=== PATIENT | male | born 1975 | race Caucasian/White ===

== ENCOUNTER 2022-03-23 07:54 | Emergency (ER) | payer BC, OTHER ==
[~2022-03-23] VITALS: Ht 172.7 cm; Wt 63.5 kg
--- NOTE | 2022-03-23 08:03 | ED General ---
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 Last night he was fine without any issues. Pt is able to ambulate without any issues. Denies fall, injuries, fever, chest pain, palpitations, neuro deficits, bowel/ bladder difficulties, abdominal pain, nausea and vomiting, diarrhea, headache, dizzine ss. No known sick contacts. Allergies and Home Medications Allergies Coded Allergies: No Known Drug Allergies (Unverified , 03/23/22) Patient Home Medication List Home Medication List Reviewed: Yes Review of Systems Review of Systems Constitutional: malaise EENTM: no symptoms reported Respiratory: short of breath Gastrointestinal: no symptoms reported Genitourinary: no symptoms reported Musculoskeletal: back pain Skin: no symptoms reported Psychiatric/Neurological: No Symptoms Reported Hematologic/Lymphatic: No Symptoms Reported Immunological/Allergic: no symptoms reported Physical Exam Vital Signs Vital Signs - First Documented 03/23/22 08:00 Temp 36.0 Pulse 87 Resp 20 B/P (MAP) 111/72 (85) Pulse Ox 98 O2 Delivery Room Air Capillary Refill : Height, Weight, BMI Height: '" Weight: lbs. oz. kg; BMI Method: General Appearance: Mild Distress HEENT: PERRL/EOMI, Normal ENT Inspection Neck: Full Range of Motion, Normal Inspection, Non Tender, Supple Respiratory: Chest Non Tender, Lungs Clear, Normal Breath Sounds, No Accessory Muscle Use Cardiovascular: Regular Rate, Rhythm, Normal Peripheral Pulses, Other (right upper extremity non-pitting edema, seen mainly in the hand.) Gastrointestinal: Normal Bowel Sounds, No Pulsatile Mass, Non Tender, Soft Back: Normal Inspection, Decreased Range of Motion, Muscle Spasm, Vertebral Tenderness (in the L1-L3 area, bilateral straight leg test positive, intact sensation) Extremity: Normal Capillary Refill, Normal Range of Motion, Non Tender, Other (edema of right upper extremity) Neurologic/Psychiatric: Alert, Oriented x3, No Motor/Sensory Deficits, Normal Mood/Affect, digital account coordinator II-XII Norm as Tested, Other (pt is able to ambulate) Skin: Normal Color, Warm/Dry Focused Exam Lactate Level 03/23/22 08:09: Lactic Acid Level 3.01*H 03/23/22 11:40: Lactic Acid Level Laboratory Tests Test 03/23/22 08:09 03/23/22 11:40 Lactic Acid Level 3.01 MMOL/L (0.50-2.00) *H Progress/Results/Core Measures Suspected Sepsis SIRS Temperature: Pulse: Respiratory Rate: Laboratory Tests 03/23/22 08:09: White Blood Count 10.2 Blood Pressure / Mean: 03/23/22 08:09: Lactic Acid Level 3.01*H 03/23/22 11:40: Laboratory Tests 03/23/22 08:09: Creatinine 0.92, INR Comment 3.3H, Platelet Count 212, Total Bilirubin 0.6 Results/Orders Lab Results Laboratory Tests Test 03/23/22 08:09 03/23/22 08:15 03/23/22 10:15 03/23/22 10:40 Range/Units White Blood Count 10.2 4.3-11.0 10^3/uL Red Blood Count 4.92 4.30-5.52 10^6/uL Hemoglobin 15.6 13.3-17.7 g/dL Hematocrit 46 40-54 % Mean Corpuscular Volume 93 80-99 fL Mean Corpuscular Hemoglobin 32 25-34 pg Mean Corpuscular Hemoglobin Concent 34 32-36 g/dL Red Cell Distribution Width 12.4 10.0-14.5 % Platelet Count 212 130-400 10^3/uL Mean Platelet Volume 9.4 9.0-12.2 fL Immature Granulocyte % (Auto) 1 % Neutrophils (%) (Auto) 82 H 42-75 % Lymphocytes (%) (Auto) 11 L 12-44 % Monocytes (%) (Auto) 5 0-12 % Eosinophils (%) (Auto) 1 0-10 % Basophils (%) (Auto) 1 0-10 % Neutrophils # (Auto) 8.3 H 1.8-7.8 10^3/uL Lymphocytes # (Auto) 1.2 1.0-4.0 10^3/uL Monocytes # (Auto) 0.5 0.0-1.0 10^3/uL Eosinophils # (Auto) 0.1 0.0-0.3 10^3/uL Basophils # (Auto) 0.1 0.0-0.1 10^3/uL Immature Granulocyte # (Auto) 0.1 0.0-0.1 10^3/uL Prothrombin Time 33.8 H 12.2-14.7 SEC INR Comment 3.3 H 0.8-1.4 Activated Partial Thromboplast Time 50 H 24-35 SEC D-Dimer 0.22 0.00-0.49 UG/ML Sodium Level 140 135-145 MMOL/L Potassium Level 4.3 3.6-5.0 MMOL/L Chloride Level 106 98-107 MMOL/L Carbon Dioxide Level 18 L 21-32 MMOL/L Anion Gap 16 H 5-14 MMOL/L Blood Urea Nitrogen 16 7-18 MG/DL Creatinine 0.92 0.60-1.30 MG/DL Estimat Glomerular Filtration Rate 102 BUN/Creatinine Ratio 17 Glucose Level 59 *L 70-105 MG/DL Lactic Acid Level 3.01 *H 0.50-2.00 MMOL/L Calcium Level 8.7 8.5-10.1 MG/DL Corrected Calcium 8.7 8.5-10.1 MG/DL Magnesium Level 1.9 1.6-2.4 MG/DL Total Bilirubin 0.6 0.1-1.0 MG/DL Aspartate Amino Transf (AST/SGOT) 26 5-34 U/L Alanine Aminotransferase (ALT/SGPT) 17 0-55 U/L Alkaline Phosphatase 73 40-136 U/L Troponin I < 0.30 <0.30 NG/ML Total Protein 6.8 6.4-8.2 GM/DL Albumin 4.0 3.2-4.5 GM/DL Lipase 19 8-78 U/L Influenza Type A (RT-PCR) Not Detected Not Detecte Influenza Type B (RT-PCR) Not Detected Not Detecte SARS-CoV-2 RNA (RT-PCR) Not Detected Not Detecte Glucometer 131 H 70-110 MG/DL Urine Color YELLOW Urine Clarity CLEAR Urine pH 5.5 5-9 Urine Specific [place] 1.015 L 1.016-1.022 Urine Protein NEGATIVE NEGATIVE Urine Glucose (UA) 1+ H NEGATIVE Urine Ketones 1+ H NEGATIVE Urine Nitrite NEGATIVE NEGATIVE Urine Bilirubin NEGATIVE NEGATIVE Urine Urobilinogen 0.2 < = 1.0 MG/DL Urine Leukocyte Esterase NEGATIVE NEGATIVE Urine RBC (Auto) NEGATIVE NEGATIVE Urine RBC NONE /HPF Urine WBC NONE /HPF Urine Squamous Epithelial Cells RARE /HPF Urine Crystals NONE /LPF Urine Bacteria NEGATIVE /HPF Urine Casts NONE /LPF Urine Mucus SMALL H /LPF Urine Culture Indicated NO Urine Opiates Screen NEGATIVE NEGATIVE Urine Oxycodone Screen NEGATIVE NEGATIVE Urine Methadone Screen NEGATIVE NEGATIVE Urine Propoxyphene Screen NEGATIVE NEGATIVE Urine Barbiturates Screen NEGATIVE NEGATIVE Ur Tricyclic Antidepressants Screen NEGATIVE NEGATIVE Urine Phencyclidine Screen NEGATIVE NEGATIVE Urine Amphetamines Screen NEGATIVE NEGATIVE Urine Methamphetamines Screen NEGATIVE NEGATIVE Urine Benzodiazepines Screen NEGATIVE NEGATIVE Urine Cocaine Screen NEGATIVE NEGATIVE Urine Cannabinoids Screen NEGATIVE NEGATIVE Test 03/23/22 11:40 Range/Units My Orders Orders - SIRENA NOLEN MD Cbc With Automated Diff (03/23/22 08:11) Comprehensive Metabolic Panel (03/23/22 08:11) Fibrin Degradation Products (03/23/22 08:11) Drug Screen Stat (Urine) (03/23/22 08:11) Lactic Acid Analyzer (03/23/22 08:11) Lipase (03/23/22 08:11) Magnesium (03/23/22 08:11) Procalcitonin (Pct) (03/23/22 08:11) Protime With Inr (03/23/22 08:11) Partial Thromboplastin Time (03/23/22 08:11) Ua Culture If Indicated (03/23/22 08:11) Troponin I Fs (03/23/22 08:11) Chest 1 View Ap/Pa Only (03/23/22 08:13) Us Venous Upper Ext Rt (03/23/22 08:13) Dexamethasone Injection (Decadron Inje (03/23/22 08:15) Covid 19 Inhouse Test (03/23/22 08:18) Influenza A And B By Pcr (03/23/22 08:18) Lumbar Spine 2 Or 3 View (03/23/22 08:14) Ed Iv/Invasive Line Start (03/23/22 08:52) Ns Iv 1000 Ml (Sodium Chloride 0.9%) (03/23/22 09:00) Blood Culture (03/23/22 08:52) Cefepime Injection (Maxipime Injection) (03/23/22 09:00) D50w (Emergency) Syringe (Dextrose 50% 5 (03/23/22 09:00) Ct Angio Chst/Abd/Pelv W Wo (03/23/22 09:18) Iohexol Injection (Omnipaque 350 Mg/Ml 1 (03/23/22 09:30) Received Contrast (Hold Metformin- Contr (03/23/22 09:30) Ns (Ivpb) (Sodium Chloride 0.9% Ivpb Bag (03/23/22 09:30) Medications Given in ED Current Medications Medications Dose Ordered Sig/Cheng Route Start Time Stop Time Status Last Admin Dose Admin Cefepime HCl 1000 mg/Sodium Chloride 50 ml @ 100 mls/hr ONCE ONCE IV 03/23/22 09:00 03/23/22 09:29 DC 03/23/22 10:07 100 MLS/HR Dexamethasone Sodium Phosphate 10 mg ONCE ONCE IV 03/23/22 08:15 03/23/22 08:43 DC 03/23/22 10:06 10 MG Dextrose 50 ml ONCE ONCE IV 03/23/22 09:00 03/23/22 09:01 DC 03/23/22 09:11 50 ML Iohexol 100 ml ONCE ONCE IV 03/23/22 09:30 03/23/22 09:31 DC 03/23/22 10:03 100 ML Sodium Chloride 100 ml ONCE ONCE IV 03/23/22 09:30 03/23/22 09:31 DC 03/23/22 10:03 100 ML Vital Signs/I&O 03/23/22 08:00 Temp 36.0 Pulse 87 Resp 20 B/P (MAP) 111/72 (85) Pulse Ox 98 O2 Delivery Room Air Capillary Refill : Progress Note : Progress Note 1. LOW BACK STRAIN: - CXR: unremarkable - CT ABD: unremarkabkle - XR LUMBAR SPINE: unremarkable - Dexa 10mg iv STAT - Advised Tylenol and Lidoderm patch 2. RIGHT UPPER EXTREMITY SWELLING: - ULTRASOUND UPPER EXTREMITY: no DVT - D-dimer: normal 3. ELEVATED PT & PTT: - PT: 33.8 - PTT: 50 - INR is 3.3 - Pt takes 5mg and 6mg of Warfarin alternating doses every other day - Called pt's PCP at and discussed with Dr. Pat Cook's nurse. Pt in ER a long time due to waitng to hear from PCP office at . PCP states she has her first visit with pt only tomorrow. Pt wants to go to only and doesnot want to be sent to [facility] for admission or observation. PCP stated that she will see him in clinic tomorrow and look over his labs from ER, as per nurse. 4. ELEVATED LACTIC ACID: DEHYDRATION WITH GENERALIZED MALAISE: - s. 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 HYPOGLYCEMIA: - Blood sugar is 59 - D-50 iv STAT - Blood sugar improved to 130's - Adequate nutrition and hydration advised Diagnostic Imaging Diagonstic Imaging: Xray, CT, Ultrasound Plain Films/CT/US/NM/MRI: forearm, hand, chest, other Comments [facility] [place], [place] NAME: MAX TAMEZ [facility] REC#: [id number] PT STATUS: REG ER : 1975 PHYSICIAN: SIRENA NOLEN MD ADMIT DATE: 03/23/22/ER FS Signed Date of Exam:03/23/22 CHEST 1 VIEW AP/PA ONLY EXAM: CHEST 1 VIEW AP/PA ONLY INDICATION: Shortness of breath. Back pain. COMPARISON: None. FINDINGS: Normal heart size and central pulmonary vascularity. No focal pulmonary opacity. No pleural effusion or pneumothorax. No acute osseous findings. Postoperative changes in the left clavicle. IMPRESSION: No acute cardiopulmonary findings. Dictated by: Dictated on workstation # [id number] Dict: 03/23/22 0851 Trans: 03/23/2259 [facility] [id number] Interpreted by: DENIA PEÑA MD Electronically signed by: DENIA PEÑA MD 03/23/2259 [facility] [place], [place] NAME: MAX TAMEZ [facility] REC#: [id number] PT STATUS: REG ER : 1975 PHYSICIAN: SIRENA NOLEN MD ADMIT DATE: 03/23/22/ER FS Draft Date of Exam:03/23/22 US VENOUS UPPER EXT RT INDICATION: Right arm swelling. Grayscale, color-flow and duplex Doppler evaluation of the right upper extremity deep venous system was performed. The right internal jugular vein is patent. Right subclavian and axillary veins are patent. The brachial vein is patent. Basilic and cephalic as well as radial and ulnar veins are patent. No thrombus is seen. No fluid collection is identified. IMPRESSION: No evidence of right upper extremity DVT. Dictated on workstation # [id number] Dict: 03/23/22927 Trans: 03/23/22929 [facility] [id number] Interpreted by: BULMARO RODRIGUES MD Electronically signed by: [facility] [place], [place] NAME: MAX TAMEZ [facility] REC#: [id number] PT STATUS: REG ER : 1975 PHYSICIAN: SIRENA NOLEN MD ADMIT DATE: 03/23/22/ER FS Draft Date of Exam:03/23/22 CT ANGIO CHST/ABD/PELV W WO EXAMINATION: CT angiography of the chest, abdomen, and pelvis. TECHNIQUE: Contrast enhanced thin section helical images were obtained through the chest, abdomen and pelvis with intravenous contrast timed for the optimal opacification of the arterial structures per CTA protocol. Post-processing, reconstructions and interpretation of angiographic images of the vessels was performed. 3D MIP reconstructions were performed and reviewed. All CT scans use one or more of the following dose optimizing techniques: automated exposure control, MA and/or KvP adjustment based on a patient size and exam type, or iterative reconstruction. HISTORY: Chest and abdominal pain radiating to the back. COMPARISON: None available. FINDINGS: There is no acute aortic syndrome. No aortic dissection, intramural hematoma, or penetrating atherosclerotic ulcer. No aortic aneurysm is seen. No central pulmonary embolism. There is no edema or pneumonia. No pleural effusion. No pneumothorax. No suspicious nodules. There is mild paraseptal emphysema. There is no axillary or supraclavicular lymphadenopathy. There is no mediastinal lymphadenopathy. Heart size is normal. There are mild coronary artery calcifications. No pericardial effusion. The liver is normal without focal lesion. There is no biliary ductal dilation. Gallbladder is normal. Pancreas is normal. Spleen is normal. Adrenal glands are normal. The kidneys are normal. There is no hydronephrosis. Urinary bladder is normal. Bowel is normal in caliber without obstruction or inflammation. No free fluid or air. No abdominal or pelvic lymphadenopathy. There are no suspicious osseus lesions. IMPRESSION: No acute aortic syndrome. No acute abnormality in the chest, abdomen, or pelvis. Dictated on workstation # [id number] Dict: 03/23/22 1039 Trans: 03/23/22 1045 [id number] Interpreted by: BARBARA CURTIS MD Electronically signed by: [facility] [place] NAME: MAX TAMEZ [facility] REC#: [id number] PT STATUS: REG ER : 1975 PHYSICIAN: SIRENA NOLEN MD ADMIT DATE: 03/23/22/ER FS Draft Date of Exam:03/23/22 LUMBAR SPINE 2 OR 3 VIEW CLINICAL INDICATIONS: Patient is short of breath and has back pain. EXAM: X-ray of the lumbar spine, 3 views. COMPARISON: None. FINDINGS: There is no acute lumbar spine fracture or dislocation. There is no pars defect. The intervertebral disk heights and vertebral body heights are maintained. There are mild to moderately hypertrophic spurs involving the lumbar spine. There is mild sclerosis involving the sacroiliac joints. IMPRESSION: Lumbar spine degenerative disease with no acute fracture or dislocation. Dictated on workstation # [id number] Dict: 03/23/22 0847 Trans: 03/23/22 0849 [facility] [id number] Interpreted by: RAFFI SAGE MD Electronically signed by: Departure Communication (Admissions) Time/Spoke to Consulting Phy: 12:05 Dr Cook's nurse at Impression Primary Impression: Fatigue Additional Impressions: Elevated partial thromboplastin time (PTT) Lactic acidosis Dehydration Low back strain Qualified Codes: S39.012A - Strain of muscle, fascia and tendon of lower back, initial encounter Hypoglycemia Disposition: HOME, SELF-CARE Condition: Improved Departure-Patient Inst. Referrals: DANNY RM MD (PCP) Primary Care Physician Patient Instructions: Dehydration, Adult (DC), Muscle Strain (DC), Why Water Is Important to Health, Fatigue ED, Lactic Acid Blood Test, Low Blood Sugar, Adult (DC) Add. Discharge Instructions: - Advised Tylenol and Lidoderm patch for backpain -Advised adequate hydration and nutrition. -Patient works in a tire shop in the heat, advised patient to stay out of the heat, avoid heavy lifting, and keep hydrated. -Advised to follow-up with PCP for which she has an appointment tomorrow morning. -Return to ER if symptoms worsen All discharge instructions reviewed with patient and/or family. Voiced understanding. SIRENA NOLEN MD Mar 23, 2022 08:03
[2022-03-23 08:28] LABS: BASOPHILS # (AUTO) 0.1 10^3/uL (0.0-0.1); BASOPHILS % (AUTO) 1 % (0-10); EOSINOPHILS # (AUTO) 0.1 10^3/uL (0.0-0.3); EOSINOPHILS % (AUTO) 1 % (0-10); HEMATOCRIT 46 % (40-54); HEMOGLOBIN 15.6 g/dL (13.3-17.7); LYMPHOCYTES # (AUTO) 1.2 10^3/uL (1.0-4.0); LYMPHOCYTES % (AUTO) 11 % (12-44); MEAN CORPUSCULAR HEMOGLOBIN 32 pg (25-34); MEAN CORPUSCULAR HGB CONC 34 g/dL (32-36); MEAN CORPUSCULAR VOLUME 93 fL (80-99); MEAN PLATELET VOLUME 9.4 fL (9.0-12.2); MONOCYTES # (AUTO) 0.5 10^3/uL (0.0-1.0); MONOCYTES % (AUTO) 5 % (0-12); NEUTROPHILS # (AUTO) 8.3 10^3/uL (1.8-7.8); NEUTROPHILS % (AUTO) 82 % (42-75); PLATELET COUNT 212 10^3/uL (130-400); WHITE BLOOD COUNT 10.2 10^3/uL (4.3-11.0)
[2022-03-23 08:48] LABS: FIBRIN DEGRADATION PRODUCTS 0.22 UG/ML (0.00-0.49); INR 3.3 (0.8-1.4); PROTHROMBIN TIME PATIENT 33.8 SEC (12.2-14.7)
--- NOTE | 2022-03-23 08:50 | Diagnostic Imaging Report ---
CLINICAL INDICATIONS: Patient is short of breath and has back pain. EXAM: X-ray of the lumbar spine, 3 views. COMPARISON: None. FINDINGS: There is no acute lumbar spine fracture or dislocation. There is no pars defect. The intervertebral disk heights and vertebral body heights are maintained. There are mild to moderately hypertrophic spurs involving the lumbar spine. There is mild sclerosis involving the sacroiliac joints. IMPRESSION: Lumbar spine degenerative disease with no acute fracture or dislocation. Dictated by: Dictated on workstation # [id number]
--- NOTE | 2022-03-23 08:53 | Diagnostic Imaging Report ---
EXAM: CHEST 1 VIEW AP/PA ONLY INDICATION: Shortness of breath. Back pain. COMPARISON: None. FINDINGS: Normal heart size and central pulmonary vascularity. No focal pulmonary opacity. No pleural effusion or pneumothorax. No acute osseous findings. Postoperative changes in the left clavicle. IMPRESSION: No acute cardiopulmonary findings. Dictated by: Dictated on workstation # [id number]
[2022-03-23 08:56] LABS: BUN/CREATININE RATIO 17; CARBON DIOXIDE 18 MMOL/L (21-32); CHLORIDE 106 MMOL/L (98-107); CREATININE SERUM 0.92 MG/DL (0.60-1.30); GFR ESTIMATED 102; POTASSIUM 4.3 MMOL/L (3.6-5.0); SODIUM 140 MMOL/L (135-145)
[2022-03-23 08:57] LABS: CALCIUM 8.7 MG/DL (8.5-10.1); GLUCOSE 59 MG/DL (70-105)
[2022-03-23 08:58] LABS: ALANINE AMINOTRANSFERASE 17 U/L (0-55); ALKALINE PHOSPHATASE 73 U/L (40-136); BILIRUBIN,TOTAL 0.6 MG/DL (0.1-1.0); MAGNESIUM 1.9 MG/DL (1.6-2.4); TOTAL PROTEIN 6.8 GM/DL (6.4-8.2)
[2022-03-23] MEDS ORDERED: NS IV 1000 ML 1,000 ML IV SCH (09:00)
[2022-03-23] MEDS ORDERED: CEFEPIME INJECTION 1,000 MG in NS (IVPB) 50 ML IV ONE (09:00)
[2022-03-23] MEDS ORDERED: DEXTROSE 50% 50 ML (IMS) SYR IV ONE (09:00)
[2022-03-23 09:11] LABS: LIPASE 19 U/L (8-78)
[2022-03-23] MEDS ORDERED: HOLD METFORMIN - RECEIVED CONTRAST 20 ML VIAL IV SCH (09:30)
[2022-03-23] MEDS ORDERED: IOHEXOL 350 MG/ML 100 ML (OMNIPAQUE 350) VIAL IV ONE (09:30)
[2022-03-23] MEDS ORDERED: NS 100 ML (IVPB) BAG IV ONE (09:30)
--- NOTE | 2022-03-23 09:30 | Diagnostic Imaging Report ---
INDICATION: Right arm swelling. Grayscale, color-flow and duplex Doppler evaluation of the right upper extremity deep venous system was performed. The right internal jugular vein is patent. Right subclavian and axillary veins are patent. The brachial vein is patent. Basilic and cephalic as well as radial and ulnar veins are patent. No thrombus is seen. No fluid collection is identified. IMPRESSION: No evidence of right upper extremity DVT. Dictated by: Dictated on workstation # [id number]
--- NOTE | 2022-03-23 10:45 | Diagnostic Imaging Report ---
EXAMINATION: CT angiography of the chest, abdomen, and pelvis. TECHNIQUE: Contrast enhanced thin section helical images were obtained through the chest, abdomen and pelvis with intravenous contrast timed for the optimal opacification of the arterial structures per CTA protocol. Post-processing, reconstructions and interpretation of angiographic images of the vessels was performed. 3D MIP reconstructions were performed and reviewed. All CT scans use one or more of the following dose optimizing techniques: automated exposure control, MA and/or KvP adjustment based on a patient size and exam type, or iterative reconstruction. HISTORY: Chest and abdominal pain radiating to the back. COMPARISON: None available. FINDINGS: There is no acute aortic syndrome. No aortic dissection, intramural hematoma, or penetrating atherosclerotic ulcer. No aortic aneurysm is seen. No central pulmonary embolism. There is no edema or pneumonia. No pleural effusion. No pneumothorax. No suspicious nodules. There is mild paraseptal emphysema. There is no axillary or supraclavicular lymphadenopathy. There is no mediastinal lymphadenopathy. Heart size is normal. There are mild coronary artery calcifications. No pericardial effusion. The liver is normal without focal lesion. There is no biliary ductal dilation. Gallbladder is normal. Pancreas is normal. Spleen is normal. Adrenal glands are normal. The kidneys are normal. There is no hydronephrosis. Urinary bladder is normal. Bowel is normal in caliber without obstruction or inflammation. No free fluid or air. No abdominal or pelvic lymphadenopathy. There are no suspicious osseus lesions. IMPRESSION: No acute aortic syndrome. No acute abnormality in the chest, abdomen, or pelvis. Dictated by: Dictated on workstation # [id number]
[2022-03-23 10:50] LABS: BILIRUBIN,URINE NEGATIVE (NEGATIVE); CLARITY,URINE CLEAR; COLOR,URINE YELLOW; GLUCOSE, URINE (UA) 1+ (NEGATIVE); KETONES,URINE 1+ (NEGATIVE); LEUKOCYTE ESTERASE ,URINE NEGATIVE (NEGATIVE); NITRITE,URINE NEGATIVE (NEGATIVE); PH,URINE 5.5 (5-9); PROTEIN,URINE NEGATIVE (NEGATIVE)
[2022-03-23 11:03] LABS: BACTERIA,URINE NEGATIVE /HPF; SQUAMOUS EPITHELIAL CELL,UR RARE /HPF
[2022-03-23 11:09] LABS: AMPHETAMINE SCREEN, URINE NEGATIVE (NEGATIVE); BARBITURATE SCREEN URINE NEGATIVE (NEGATIVE); BENZODIAZEPINES SCREEN URINE NEGATIVE (NEGATIVE); CANNABINOID SCREEN, URINE NEGATIVE (NEGATIVE); COCAINE SCREEN URINE NEGATIVE (NEGATIVE); METHADONE STAT NEGATIVE (NEGATIVE); OPIATE SCREEN URINE NEGATIVE (NEGATIVE); OXYCODONE STAT NEGATIVE (NEGATIVE); PROPOXYPHENE STAT NEGATIVE (NEGATIVE); TRICYCLIC ANTIDEPRESSANTS SCRE NEGATIVE (NEGATIVE)
[2022-03-23 12:48] VITALS: BP 115/72
== END 2022-03-23 12:48 | disposition home or self-care (01) ==
LOC: ER FS 07:56
DX: S39.012A Strain of muscle, fascia and tendon of lower back, initial encounter (principal); E16.2 Hypoglycemia, unspecified; E86.0 Dehydration; E87.2 Acidosis; R53.83 Other fatigue; Z20.822 Contact with and (suspected) exposure to COVID-19; Z79.01 Long term (current) use of anticoagulants; X58.XXXA Exposure to other specified factors, initial encounter
CPT/HCPCS: 36415; 71045; 71275; 72100; 74174; 80053; 80306; 81000; 82947; 83605; 83690; 83735; 84145; 84484; 85025; 85379; 85610; 85730; 87040; 87636; Q9967